=== PATIENT | female | born 1960 | race Caucasian/White ===

== ENCOUNTER → 2021-03-27 | Outpatient (REF) | payer BC | LOC: M LAB REF 17:25 | PROVIDERS: ATTEND Dermatology | DX: C44.629 Squamous cell carcinoma of skin of left upper limb, including shoulder (principal) ==

== ENCOUNTER → 2023-01-21 | Outpatient (CLI) | payer BC | LOC: M PLAIMG 09:56 | DX: M54.16 Radiculopathy, lumbar region (principal) ==

== ENCOUNTER → 2023-05-24 | Outpatient (CLI) | payer BC | LOC: M RAD 12:33 | PROVIDERS: ATTEND Orthopaedic Surgery Orthopaedic Surgery of the Spine | DX: M54.16 Radiculopathy, lumbar region (principal); M43.16 Spondylolisthesis, lumbar region; M48.062 Spinal stenosis, lumbar region with neurogenic claudication ==